=== PATIENT | male | born 1990 | race Caucasian/White ===

== ENCOUNTER 2019-05-16 14:16 | Emergency (ER) | payer MEDICAID, SELFPAY ==
[2019-05-16 14:17] VITALS: BP 128/76; PULSE 88; RESP 18; TEMP 36.9; O2SAT 100; BMI 29.0
--- NOTE | 2019-05-16 14:55 | RAD_ITS ---
STUDY: X-RAY - RIGHT HAND REASON FOR EXAM: Male, 29 years old. First digit pain and redness TECHNIQUE: 3 view(s) of the hand. COMPARISON: None. FINDINGS: Normal radiocarpal articulation. Normal distal radioulnar joint. Normal visualized carpal bones. Normal carpal articulations Normal carpometacarpal articulation of the thumb. Normal second through fifth carpometacarpal joints. Normal metacarpi. Normal metacarpophalangeal joint of the thumb. Normal interphalangeal joint of the thumb. Normal proximal and distal phalanges of the thumb. Normal metacarpophalangeal joints of the second through fifth fingers. Normal proximal and distal interphalangeal joints of the second through fifth fingers. Normal phalanges of the second through fifth fingers. The soft tissue structures are unremarkable. RAD/Hand Min 3 Views IMPRESSION: Normal x-ray examination of the hand. Electronically Signed: Antelmo Bah MD at 16:24 EDT , Service support ,
--- NOTE | 2019-05-16 15:04 | ED.VISSUMM ---
- ER Visit Summary Date of Service: 05/16/19 Chief Complaint: Thumb pain History of Present Illness: The patient is a 29 M with complex medical history presents to the emergency department with thumb pain. The patient had a hand abscess. He underwent incision and drainage on April 03 through the [facility] by Dr. Price. He was also found to have multiple superficial emboli as this initially started after he accidentally injected into his radial artery. He states he been recovering. Over the past 3 days, he had increasing pain, skin change along the thumb, hand swelling, and had a fever last night. Patient also has a history of prior osteomyelitis. He states that he had called his hand surgeon who referred him to the emergency department. He denies any drainage from the site. He has been compliant with his aspirin therapy. Physical Examination: Examination of the hand shows some duskiness over the dorsum of the right thumb. It does not involve the nail. His cap refill is approximately 3 seconds. He does have palpable radial ulnar pulse. There is a healing operative wound in the webspace between the first and second finger. There is tenderness to palpation. Test Results: [] Emergency Department Course and Treatment: My concern is that the patient has developed a new infection in his hand. I do not feel this or presence of flexor Maya synovitis. He has some dusky changes in the skin, but he thinks that these are chronic. His cap refill is 3 seconds. He has a known arterial injury from 6 months ago. He had a difficult time establishing IV, but his labs were relatively unremarkable. His echo shows no evidence of osteomyelitis. Given his fever, increasing drainage, increasing pain I do feel that he is going to require orthopedic evaluation. I discussed the patient with [facility] who accepted the patient in transfer. Treatment Plan: [] Disposition: Transfer Impression: 1. Right deep space hand infection This note was generated with [employer] dictation software. It may contain incorrect words, spelling, and punctuation that were not noted in review of the chart prior to signing ED Disposition - Plan for ED Patient: Referrals: Brien Lora MD [Primary Care Provider] -
[2019-05-16 16:02] LABS: Bacteria 0 SEEN /hpf (None Seen); Mucous, Urine 0 SEEN /hpf (<or=2+); Red Blood Cells-Urine 0 SEEN /hpf (0-5); White Blood Cells 0 SEEN /hpf (0-5)
[2019-05-16 16:05] LABS: Color, Urine Yellow (Yellow); Glucose, Dipstick Normal (Normal); Ketone-Dipstick Negative (Negative); Leukocyte Esterase-Dipstick Negative /ul (Negative); Nitrite-Dipstick Negative (Negative); Occult Blood-Urine Negative /ul (Negative); Protein-Dipstick Negative (Negative); Specific Gravity, Urine 1.015 (1.002-1.030); Urine Bilirubin Dipstick Negative (Negative); Urine Clarity Clear (Clear); Urine Urobilinogen Normal (Normal); Urine pH 6.5 (5.0 - 8.0)
[2019-05-16 16:16] VITALS: PULSE 80; RESP 15; O2SAT 99
[2019-05-16 16:17] LABS: Squamous Epithelial Cells - UA 0-5 SEEN /hpf (0-5)
[2019-05-16 16:18] LABS: Transitional Epithelial - Ur 0-5 SEEN /hpf (0-5)
[2019-05-16 17:18] VITALS: BP 129/93; PULSE 87; RESP 15; O2SAT 97
[2019-05-16] MEDS: 0.9% Normal Saline 1,000 ML 1000 ML IV (17:22)
[2019-05-16 17:29] LABS: Hematocrit 42.4 % (40-54); Hemoglobin 14.6 g/dl (13.0-16.5); Mean Corp Hgb Conc 34.4 g/gl (32-36); Mean Corpuscular Hgb 30.4 pg (27.0-32.0); Mean Corpuscular Volume 88.3 fL (80-94); Mean Platelet Vol. 10.2 fl (6.2-12.0); Platelet Count 194 K/mm3 (150-450); RBC Distribution Width CV 12.6 % (11.6-14.6); RBC Distribution Width SD 40.3 fl (35.1-43.9)
[2019-05-16 17:31] LABS: Scan Indicated on CBC? Y/N NO
[2019-05-16 17:41] LABS: Erythrocyte Sedimentation Rate 23 mm/hr (0-15)
[2019-05-16 17:45] LABS: International Normalized Ratio 1.2; Prothrombin Time (Protime)PT. 14.5 SECONDS (11.7-14.9)
[2019-05-16 17:47] LABS: AST(SGOT) 28 U/L (15-37); Alanine Aminotransfer ALT/SGPT 42 U/L (16-61); Albumin, Serum 3.9 g/dL (3.2-5.0); Alkaline Phosphatase 126 U/L (45-117); Anion Gap 6 (5-15); BUN 14 mg/dL (7-18); BUN/Creat Ratio 14.4 RATIO (10-20); Calcium,Total 9.2 mg/dL (8.5-10.1); Chloride 101 mmol/L (98-107); Creatinine, Serum 0.98 mg/dL (0.70-1.30); EST Glomerular Filtration Rate 97 mL/min (>60); Est Glom Filt Rate - Afr Amer 118 mL/min (>60); Estimated Creatinine Clearance 126.83 ml/min; Globulin 3.9 g/dL (2.2-4.2); Glucose 97 mg/dL (74-106); Potassium 4.2 mmol/L (3.5-5.1); Protein, Total 7.8 g/dL (6.4-8.2); Sodium Level 136 mmol/L (136-145)
--- NOTE | 2019-05-16 17:47 | ED.RN ---
dr mortensen informed of inability to obtain second culture. he stated on set was fine. desiree fair rn [id number]
--- NOTE | 2019-05-16 17:51 | ED.RN ---
pt was found eating. was consulted and order was placed for NPO. desiree fair rn [id number]
[2019-05-16 18:02] VITALS: BP 124/84; PULSE 82; RESP 16; O2SAT 98
[2019-05-16 18:16] LABS: Lactic Acid 0.8 mmol/L (0.4-2.0)
[2019-05-16] MEDS: LORazepam 2 MG/ML Syringe 1 MG IV (18:34)
[2019-05-16 19:07] VITALS: BP 115/81; PULSE 84; RESP 16; O2SAT 96
== END 2019-05-16 19:16 | disposition short-term general hospital (02) ==
PROVIDERS: Emergency Provider Emergency Medicine; Family Provider Internal Medicine Infectious Disease; PCP Internal Medicine Infectious Disease
DX: M79.89 Other specified soft tissue disorders (principal); R50.9 Fever, unspecified; Z72.0 Tobacco use
CPT/HCPCS: 73130; 80053; 81001; 83605; 85027; 85610; 85652; 86140; 87040; 99285; J7030; A4216

== ENCOUNTER 2019-05-22 10:28 | Outpatient (RCR) | payer MEDICAID, SELFPAY ==
[2019-05-22 11:02] VITALS: BP 132/97; PULSE 156; RESP 16; TEMP 37; BMI 29.0
--- NOTE | 2019-05-22 20:29 | PN.PCM_ITS ---
(1) Ulcer Status: Chronic Current Visit: Yes Comment: Right first webspace with fat layer exposed. Type of Wound Date of Service: 05/22/19 Chief Complaint: Nonhealing right hand ulcer. History of Wound: Mr. Catalan is a 29-year-old who was referred to the wound center due to nonhealing right hand ulcer. Status post surgery in March at the [facility], patient reports subsequent swelling and ulceration. Has been applying Adaptic daily with no significant improvement. Swelling however said to be improving. Reports constant pain, numbness and tingling in the area. - Physical Exam Vital Signs Temp Pulse Resp BP 98.6 F 156 H 16 132/97 H 05/22/19 11:02 05/22/19 11:02 05/22/19 11:02 05/22/19 11:02 Wound Measurements and Assessment WC - Nurse 1 - General Ulcer Measurement Start: 05/22/19 11:02 Freq: Status: Active Protocol: Activity Type Activity Date Activity User E-Sign Co-Sign Detail Recorded Client Recorded Date Recorded By Document 05/22/19 11:02 DV [id number] 05/22/19 11:27 DV 05/22/19 11:02 Wound Center Nurse 1 [Ulcer Assessment] #1 RIGHT HAND WEBSPACE B/T THUMP AND POINTER -Combined with other wound No -Current Size (cm) - Length 1.5 -Current Size (cm) - Width 0.2 -Current Size (cm) - Depth 0.1 -Total Square Cm 0.30 -Date of Last Picture (Recall this 05/22/19 field) -Photo Taken Yes -Epithelialization None Present -Tunneling No -Undermining/Tunneling No -Circular Undermining No -Classification - Thickness Full Thickness without Exposed Support Structure -Exudate Amt Medium -Exudate Type Serous -Wound Margin Fibrotic Scar, Thickened Scar -Granulation Amt None Present (0 %) -Granulation Quality N/A -Slough/Fibrin No -Necrosis Amt Medium (34-66%) -Necrotic Tissue Type Adherent Slough -Structure Exposed None/Limited to Skin Breakdown -Texture (Isela-wound Skin Appearance) Assessed, Scarring -Moisture (Isela-wound Skin Appearance Assessed, ) Weeping -Color (Isela-wound Skin Appearance) Assessed, Erythema -Temperature (Isela-wound Skin No Abnormality Appearance) (Pt Warm) -Tenderness on Palpation (Isela-wound Yes Skin Appearance) -Foul Odor after Cleansing No -Anesthetic Used 5% Lidocaine Gel - Nurse 2 - General Ulcer CM Notes Start: 05/22/19 11:02 Freq: Status: Active Protocol: Activity Type Activity Date Activity User E-Sign Co-Sign Detail Recorded Client Recorded Date Recorded By Document 05/22/19 12:00 MW [id number] 05/22/19 12:07 MW 05/22/19 12:00 Wound Center Nurse 2 [Procedure/Treatment] -Time 12:00 -Correct Patient Yes -Correct Side, Site, Position Yes -Correct Procedure Yes -Procedure Performed Yes -Type of Procedure Debridement -Clinical Debridement Subcutaneous -Post Debridement Size (cm) - Length 2.0 -Post Debridement Size (cm) - Width 0.3 -Post Debridement Size (cm) - Depth 0.2 -Total Square Cm 0.60 -Wound/Ulcer Outcome Not Healed -Ulcer Cleansing Rinsed/ Irrigated with Saline -Foul Odor after Cleansing No -Bioengineered Tissue No -Bleeding Controlled with Pressure -Offloading No -Treatment Response Procedure Tolerated Well [See Physician Procedure note for Specifics] Pain Scale: 0-10 Numeric [Pain] -Is Patient Pain Free? Yes Debridement Note Post-Debridement Measurements/Treatment - Nurse 2 - General Ulcer CM Notes Start: 05/22/19 11:02 Freq: Status: Active Protocol: Activity Type Activity Date Activity User E-Sign Co-Sign Detail Recorded Client Recorded Date Recorded By Document 05/22/19 12:00 MW [id number] 05/22/19 12:07 MW 05/22/19 12:00 Wound Center Nurse 2 #1 RIGHT HAND WEBSPACE B/T THUMP AND POINTER -Time 12:00 -Correct Patient Yes -Correct Side, Site, Position Yes -Correct Procedure Yes -Procedure Performed Yes -Type of Procedure Debridement -Clinical Debridement Subcutaneous -Post Debridement Size (cm) - Length 2.0 -Post Debridement Size (cm) - Width 0.3 -Post Debridement Size (cm) - Depth 0.2 -Total Square Cm 0.60 -Wound/Ulcer Outcome Not Healed -Ulcer Cleansing Rinsed/ Irrigated with Saline -Foul Odor after Cleansing No -Bioengineered Tissue No -Bleeding Controlled with Pressure -Offloading No -Treatment Response Procedure Tolerated Well Pain Scale: 0-10 Numeric Is Patient Pain Free? Yes Assessment/Plan Active Problems Ulcer (Chronic) Right first webspace with fat layer exposed.
--- NOTE | 2019-05-22 20:33 | PCM.WC.HP ---
(1) Ulcer Status: Chronic Current Visit: Yes Comment: Right first webspace with fat layer exposed. History of Present Illness Date of Service: 05/22/19 Chief Complaint: Right hand ulcer. History of Wound: Mr. Catalan 29-year-old was referred by his primary care physician due to nonhealing right hand ulcer. Status post surgery in March secondary to right hand abscess. Surgery was uneventful however he has had significant swelling which is said to have been improving. He has applied Adaptic to his right hand/webspace ulcer with no significant improvement. Also reports numbness, tingling and constant pain. Past Medical History Past Medical History: Chronic Problems Ulcer (Chronic) Right first webspace with fat layer exposed. Allergies/Adverse Reactions: Allergies haloperidol [From Haldol] Allergy (Intermediate, Verified 05/22/19 11:37) Other MUSCLE SPASMS IN FACE, TONGUE levofloxacin [From Levaquin] Adverse Reaction (Verified 05/16/19 14:22) Other CONFUSION Home Medications: Ambulatory Orders Medication Instructions Recorded Amlodipine [Norvasc] 5 mg PO DAILY 05/16/19 Aripiprazole [Abilify] 5 mg PO DAILY 05/16/19 Aspirin 325 mg PO DAILY@0800 05/16/19 Buprenorphine HCl/Naloxone HCl 8 ea SL BID 05/16/19 [Suboxone 8 mg-2 mg Sl Film] Escitalopram Oxalate [Lexapro] 20 mg PO DAILY 05/16/19 Famotidine [Pepcid] 20 mg PO BID 05/16/19 Gabapentin 800 mg PO 4X/DAY 05/16/19 Oxcarbazepine [Trileptal] 600 mg PO BID 05/16/19 Prednisone 40 mg PO UD 05/16/19 Quetiapine Fumarate [Seroquel] 1 - 2 tab PO QHS 05/16/19 Tamsulosin HCl [Flomax] 0.4 mg PO DAILY 05/16/19 Smoking Status: Heavy Smoker (>10/day) Review of Systems Constitutional: Denies: Anorexia, Chills, Fever Eyes: Denies: Blurred vision, Pain, Redness HEENT: Denies: Difficulty Swallowing Cardiovascular: Denies: Chest Pain, Chest Tightness Gastrointestinal: Denies: Abdominal Pain, Hematemesis, Vomiting Genitourinary: Denies: Hematuria Skin: Denies: Jaundice - Physical Exam Vital Signs Temp Pulse Resp BP 98.6 F 156 H 16 132/97 H 05/22/19 11:02 05/22/19 11:02 05/22/19 11:02 05/22/19 11:02 General: Alert, Oriented x3, Cooperative, No apparent distress HEENT: Atraumatic, Normocephalic Oral: Moist Mucosa Neck: Supple Lungs: Normal air movement Cardiovascular: Regular rate, Regular Rhythm, Normal S1, Normal S2 Abdomen: Non Tender Extremities: No cyanosis Skin: Ulcer/ Wound Wound Measurements and Assessment WC - Nurse 1 - General Ulcer Measurement Start: 05/22/19 11:02 Freq: Status: Active Protocol: Activity Type Activity Date Activity User E-Sign Co-Sign Detail Recorded Client Recorded Date Recorded By Document 05/22/19 11:02 DV [id number] 05/22/19 11:27 DV 05/22/19 11:02 Wound Center Nurse 1 [Ulcer Assessment] #1 RIGHT HAND WEBSPACE B/T THUMP AND POINTER -Combined with other wound No -Current Size (cm) - Length 1.5 -Current Size (cm) - Width 0.2 -Current Size (cm) - Depth 0.1 -Total Square Cm 0.30 -Date of Last Picture (Recall this 05/22/19 field) -Photo Taken Yes -Epithelialization None Present -Tunneling No -Undermining/Tunneling No -Circular Undermining No -Classification - Thickness Full Thickness without Exposed Support Structure -Exudate Amt Medium -Exudate Type Serous -Wound Margin Fibrotic Scar, Thickened Scar -Granulation Amt None Present (0 %) -Granulation Quality N/A -Slough/Fibrin No -Necrosis Amt Medium (34-66%) -Necrotic Tissue Type Adherent Slough -Structure Exposed None/Limited to Skin Breakdown -Texture (Isela-wound Skin Appearance) Assessed, Scarring -Moisture (Isela-wound Skin Appearance Assessed, ) Weeping -Color (Isela-wound Skin Appearance) Assessed, Erythema -Temperature (Isela-wound Skin No Abnormality Appearance) (Pt Warm) -Tenderness on Palpation (Isela-wound Yes Skin Appearance) -Foul Odor after Cleansing No -Anesthetic Used 5% Lidocaine Gel WC - Nurse 2 - General Ulcer CM Notes Start: 05/22/19 11:02 Freq: Status: Active Protocol: Activity Type Activity Date Activity User E-Sign Co-Sign Detail Recorded Client Recorded Date Recorded By Document 05/22/19 12:00 MW [id number] 05/22/19 12:07 MW 05/22/19 12:00 Wound Center Nurse 2 [Procedure/Treatment] -Time 12:00 -Correct Patient Yes -Correct Side, Site, Position Yes -Correct Procedure Yes -Procedure Performed Yes -Type of Procedure Debridement -Clinical Debridement Subcutaneous -Post Debridement Size (cm) - Length 2.0 -Post Debridement Size (cm) - Width 0.3 -Post Debridement Size (cm) - Depth 0.2 -Total Square Cm 0.60 -Wound/Ulcer Outcome Not Healed -Ulcer Cleansing Rinsed/ Irrigated with Saline -Foul Odor after Cleansing No -Bioengineered Tissue No -Bleeding Controlled with Pressure -Offloading No -Treatment Response Procedure Tolerated Well [See Physician Procedure note for Specifics] Pain Scale: 0-10 Numeric [Pain] -Is Patient Pain Free? Yes Musculoskeletal: No Muscle Wasting Neurological: Cranial nerves II-XII grossly intact Psych/Mental Status: Normal Affect Debridement Note Post-Debridement Measurements/Treatment WC - Nurse 2 - General Ulcer CM Notes Start: 05/22/19 11:02 Freq: Status: Active Protocol: Activity Type Activity Date Activity User E-Sign Co-Sign Detail Recorded Client Recorded Date Recorded By Document 05/22/19 12:00 MW [id number] 05/22/19 12:07 MW 05/22/19 12:00 Wound Center Nurse 2 #1 RIGHT HAND WEBSPACE B/T THUMP AND POINTER -Time 12:00 -Correct Patient Yes -Correct Side, Site, Position Yes -Correct Procedure Yes -Procedure Performed Yes -Type of Procedure Debridement -Clinical Debridement Subcutaneous -Post Debridement Size (cm) - Length 2.0 -Post Debridement Size (cm) - Width 0.3 -Post Debridement Size (cm) - Depth 0.2 -Total Square Cm 0.60 -Wound/Ulcer Outcome Not Healed -Ulcer Cleansing Rinsed/ Irrigated with Saline -Foul Odor after Cleansing No -Bioengineered Tissue No -Bleeding Controlled with Pressure -Offloading No -Treatment Response Procedure Tolerated Well Pain Scale: 0-10 Numeric Is Patient Pain Free? Yes Wound debrided: Right hand (first webspace) Wound Grade/Stage: Stage II Type of Debridement: Excisional debridement Anesthesia Used: 4% Lidocaine Solution Depth: Down to and including healthy tissue, in the subcutaneous layer Percentage of wound debrided: 100 Instrument Used: 3mm curette Tissue Removed: Slough and devitalized tissue Severity: Fat Layer Exposed Amount of bleeding with debridement: Mild Bleeding Controlled with: Pressure Patient tolerated procedure well Assessment/Plan Active Problems Ulcer (Chronic) Right first webspace with fat layer exposed. Assessment: Nonhealing right hand (first webspace) ulcer status post right hand surgery. Neuropathy. Plan: Debridement done as documented above, procedure was well-tolerated. Significant swelling noted however the patient states that this has been improving over the last couple of weeks. He however is concerned about his arterial supply/limb loss due to complications from surgery/abscess/drug use. Referred to Dr. Carter for second opinion. Promogran daily with Adaptic over top. Continue Davy wraps. Elevate extremities as often as possible. Follow-up in a week. His questions were answered and he was advised to call with any further questions or concerns. This note was generated with [employer] dictation software. It may contain incorrect words, spelling, and punctuation that were not noted in checking the note before signing.
== END 2019-05-26 23:59 ==
LOC: WC 10:28
PROVIDERS: Family Provider Internal Medicine Infectious Disease; PCP Internal Medicine Infectious Disease; Visit Provider Internal Medicine
DX: L98.492 Non-pressure chronic ulcer of skin of other sites with fat layer exposed (principal); F17.200 Nicotine dependence, unspecified, uncomplicated; G62.9 Polyneuropathy, unspecified; Z79.899 Other long term (current) drug therapy
CPT/HCPCS: 11042; 99213; G0463

== ENCOUNTER 2019-07-01 19:47 | Emergency (ER) | payer MEDICAID, SELFPAY ==
[2019-07-01 19:48] VITALS: BP 136/86; PULSE 134; RESP 16; TEMP 36.8; O2SAT 98; BMI 29.1
--- NOTE | 2019-07-01 21:40 | RAD_ITS ---
STUDY: X-RAY - RIGHT HAND REASON FOR EXAM: Male, 29 years old. Infection TECHNIQUE: 3 view(s) of the hand. COMPARISON: None. FINDINGS: Normal radiocarpal articulation. Normal distal radioulnar joint. Normal visualized carpal bones. Normal carpal articulations Normal carpometacarpal articulation of the thumb. Normal second through fifth carpometacarpal joints. Normal metacarpi. Normal metacarpophalangeal joint of the thumb. Normal interphalangeal joint of the thumb. Normal proximal and distal phalanges of the thumb. Normal metacarpophalangeal joints of the second through fifth fingers. Normal proximal and distal interphalangeal joints of the second through fifth fingers. Normal phalanges of the second through fifth fingers. There is soft tissue swelling of the first digit. RAD/Hand Min 3 Views IMPRESSION: There is NO acute bony abnormality. There is soft tissue swelling of the first digit. Electronically Signed: Gen Street MD at 21:59 EDT , Service support ,
[2019-07-01 21:42] LABS: Absolute Lymphocyte Count 0.81 X10^3/uL (0.83-4.51); Basophil# 0.02 X10^3/uL; Basophil% 0.3 % (0-1); Eosinophil# 0.01 X10^3/uL; Eosinophils% 0.1 % (0-5); Hematocrit 44.1 % (40-54); Hemoglobin 15.2 g/dL (13.0-16.5); Lymphocyte # 0.81 X10^3/ul (4.0); Lymphocyte % 10.9 % (19-41); Mean Corp Hgb Conc 34.5 g/dL (32-36); Mean Corpuscular Hgb 30.8 pg (27.0-32.0); Mean Corpuscular Volume 89.5 fL (80-94); Monocyte# 0.54 X10^3/uL; Monocyte% 7.3 % (0-10); NRBC Flagged by Analyzer 0 % (0-5); Neutrophil # 6.04 X10^3/uL (2.7-7.7); Neutrophil % 81.1 % (47-70); POSITIVE MORPHOLOGY YES; Platelet Count 222 K/mm3 (150-450); RBC Distribution Width CV 12.7 % (11.6-14.6); RBC Distribution Width SD 41.5 fl (35.1-43.9); Red Blood Count 4.93 M/mm3 (4.6-6.2); White Blood Count 7.4 K/mm3 (4.4-11.0)
[2019-07-01 21:48] LABS: Differential Indicated SCAN CRITERIA MET
[2019-07-01 21:53] LABS: Anion Gap 7 (5-15); BUN 17 mg/dL (7-18); Calcium,Total 9.1 mg/dL (8.5-10.1); Chloride 104 mmol/L (98-107); Creatinine, Serum 1.21 mg/dL (0.70-1.30); EST Glomerular Filtration Rate 76 mL/min (>60); Est Glom Filt Rate - Afr Amer 92 mL/min (>60); Estimated Creatinine Clearance 99.76 ml/min; Glucose 106 mg/dL (74-106); Potassium 4.2 mmol/L (3.5-5.1); Sodium Level 138 mmol/L (136-145)
[2019-07-01 22:00] VITALS: RESP 18
[2019-07-01 22:08] VITALS: BP 150/93; PULSE 118; RESP 18; TEMP 36.9; O2SAT 99
[2019-07-01 22:10] LABS: Differential Comment SCANNED; Erythrocyte Sedimentation Rate 18 mm/hr (0-15)
[2019-07-02] VITALS: RESP 16
--- NOTE | 2019-07-02 00:19 | ED.DCSUM_ITS ---
- ER Visit Summary Date of Service: 07/02/19 Chief Complaint: Right hand swollen with forearm redness and discomfort. History of Present Illness: The patient is a 29 M history of bipolar, anxiety, prior IV drug abuse. Patient used to inject IV methamphetamines in his right thumb and wrist. He was diagnosed with a soft tissue infection in November 2018. He has had a long complicated course of recurrent infections and hospitalizations at [facility] and [facility]. He had a biopsy done by [facility] hand surgeon that also determined that he may have myositis. He has been on multiple rounds of antibiotics at times he gets better than it recurs she is also been on steroids. At [facility] he was even septic from this and was hospitalized for lengthy period of time. Basically he has been doing well recently. He took a vacation and he has open wounds on his hand he did swim in the ocean and in chlorinated pools. In the last several days he has had recurrent swelling and redness to his dorsum of his right hand along the thumb and forearm. Physical Examination: Young male no acute distress vital signs are stable. Heart rates elevated 134. No murmur. HEENT exam unremarkable. Neck nontender no lymphadenopathy. Lungs clear to auscultation bilaterally. Heart tachycardic no murmur. Abdomen soft nontender. Patient is moving all 4 extremities. His right hand and thumb has mild swelling. There is chronic skin changes and wounds. There is no pus. It is slightly swollen and red over the dorsum of his right hand at the base of the thumb. And along his right proximal radial forearm. There is no axillary lymphadenopathy. There is no signs of flexor tenosynovitis. He is able to open and close his right hand. He has tight sensation. And a palpable radial pulse. Test Results: X-ray of his right hand shows mild soft tissue swelling but no obvious signs of osteomyelitis. CBC shows a white count 7. Hemoglobin 15. Chemistries normal. Sed rate is 18 and previously it had been higher. Emergency Department Course and Treatment: Repeat exam patient is doing well at 00 17 a.m. He will be started on Bactrim and Keflex both. He has seen a primary care physician Dr. Lora in [place] and will follow up with him in the next day or 2. He knows if this gets worse he will need recurrent evaluation and possibly hospitalization. He did not wish to be transferred at this time. Treatment Plan: Bactrim p.o. twice daily for 10 days. Keflex 4 times daily for 10 days. Follow-up with his PCP. Disposition: Discharge Impression: Recurrent right hand soft tissue infection History of prior IV drug abuse This note was generated with [employer] dictation software. It may contain incorrect words, spelling, and punctuation that were not noted in review of the chart prior to signing ED Disposition - Plan for ED Patient: Referrals: Brien Lora MD [Primary Care Provider] -
--- NOTE | 2019-07-02 00:23 | ED.DEP ---
ED Disposition - Plan for ED Patient: Disposition: Home or Assisted Living Instructions: Cellulitis Prescriptions: Smz/Tmp Ds [Bactrim Ds] 1 tab PO BID #20 tab Prescription Printed Cephalexin [Keflex] 500 mg PO Q6 #40 cap Prescription Printed Referrals: Brien Lora MD [Primary Care Provider] - As soon as possible Additional Instructions: Bactrim 1 pill twice a day for 10 days. Keflex 1 pill 4 times a day for 10 days. Next Follow-up with your doctor in the next 1 to 2 days. Return if looking or feeling worse. You need to follow-up with another hand specialist for definitive care on this and you may need an MRI for further evaluation and to rule out osteomyelitis.
[2019-07-02] MEDS: Cephalexin 250 MG Capsule 500 MG PO (00:57)
[2019-07-02] MEDS: Smz/Tmp Ds Tablet 1 TABLET PO (00:57)
--- NOTE | 2019-07-02 00:59 | NURSING ---
pt refuses to wait any longer for lab to draw 2nd set of blood cultures. lab notified
[2019-07-02 01:00] VITALS: BP 122/71; PULSE 110; RESP 18; O2SAT 99
== END 2019-07-02 01:01 | disposition home or self-care (01) ==
PROVIDERS: Emergency Provider Emergency Medicine; Family Provider Internal Medicine Infectious Disease; PCP Internal Medicine Infectious Disease
DX: L03.113 Cellulitis of right upper limb (principal); F15.10 Other stimulant abuse, uncomplicated; F31.9 Bipolar disorder, unspecified; F41.9 Anxiety disorder, unspecified; Z72.0 Tobacco use
CPT/HCPCS: 73130; 80048; 85025; 85652; 87040; 99284; A4216